=== PATIENT | female | born 1955 | race African-American/Black ===

== ENCOUNTER 2018-01-26 16:33 | Inpatient (IN) | payer OTHER ==
[~2018-01-26] VITALS: Ht 157.5 cm; Wt 73.3 kg
--- NOTE | ~2018-01-26 | EKG ---
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
--- NOTE | ~2018-01-26 | EKG ---
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 : 1955 Requested By: Calvin Rust Order Number: [id number] MD: Kirill Wagner Measurements Intervals [place] Rate: 90 P: 68 CT: 177 QRS: 64 QRSD: 70 T: 235 QT: 362 QTc: 443 Interpretive Statements Sinus rhythm Probable LVH with secondary repol abnrm Baseline wander in lead(s) II,III,aVF Compared to ECG 01/28/2018 16:52:55 No significant change was found Electronically Signed On 01-31-2018 9:02:27 CDT by Kirill Wagner [email or web address] <ELECTRONICALLY SIGNED> By: Kirill Wagner MD, [facility] 01/31/18 0902 1608 1608 Kirill Wagner MD, [facility] /EPI
--- NOTE | ~2018-01-26 | 2DMMODE ---
[facility] [place] [address] 2 D/M-MODE ECHOCARDIOGRAM Name: CLAUDETTE BENNETT Room #: 208-P [facility] IN [facility]#: [id number] Admission: 01/26/18 Attend Phys: Benja Olea MD Discharge: Date of : 51 Date of Service: 01/27/18 0919 Report #: [id number] THIS REPORT FOR: //name// APPROVED REPORT Study performed: 01/27/2018 08:23:24 EXAM: Comprehensive 2D, Doppler, and color-flow Echocardiogram Patient Location: Echo lab Status: routine BSA: 1.63 HR: 73 bpm BP: 154/94 mmHg Rhythm: NSR Other Information Study Quality: Adequate/low windows, lung disease Indications Elevated BNP, chest pain, short of breath, cough. Hx: CABG, stent, HTN, HLP, tob. 2D Dimensions RVDd: 23.59 mm IVSd: 8.34 (7-11mm) LVOT Diam: 18.63 (18-24mm) LVDd: 33.72 mm PWd: 8.54 (7-11mm) LVDs: 23.00 (25-40mm) Aortic Root: 29.25 mm Volumes Left Atrial Volume (Systole) Single Plane 4CH: 24.05 mL Single Plane 2CH: 24.00 mL LA ESV Index: 16.00 mL/m2 Aortic Valve AoV Peak Dakota.: 1.24 m/s AO Peak Gr.: 6.16 mmHg LVOT Max P.06 mmHg LVOT Max V: 1.01 m/s ELVIRA Vmax: 2.21 cm2 Mitral Valve E/A Ratio: 0.7 [facility] [address] [place] [address] 2 D/M-MODE ECHOCARDIOGRAM Name: CLAUDETTE BENNETT Room #: 208-P [facility] IN [facility]#: [id number] Admission: 01/26/18 Attend Phys: Benja Olea MD Discharge: Date of : 51 Date of Service: 01/27/18 0919 Report #: [id number] MV Decel. Time: 254.88 ms MV E Max [place].: 0.54 m/s MV A [place].: 0.73 m/s MV PHT: 73.91 ms IVRT: 117.65 ms Pulmonary Valve PV Peak Dakota.: 0.82 m/s PV Peak Gr.: 2.68 mmHg Pulmonary Vein P Vein S: 0.50 m/s P Vein A: 0.46 m/s P Vein D: 0.29 m/s P Vein A Dur.: 103.8 msec P Vein S/D Ratio: 1.72 Tricuspid Valve TR Peak [place].: 1.76 m/s RAP Estimate: 5.00 mmHg TR Peak Gr.: 12.42 mmHg PA Pressure: 17.00 mmHg Left Ventricle The left ventricle is normal size. There is normal LV segmental wall motion. Mild concentric left ventricular hypertrophy. Left ventricular systolic function is hyperdynamic. LVEF is >70%. Mild diastolic dysfunction is present (impaired relaxation pattern). Right Ventricle The right ventricle is normal size. The right ventricular systolic function is normal. Atria The left atrium size is normal. The right atrium size is normal. Aortic Valve The aortic valve is normal in structure. No aortic regurgitation. There is no aortic valvular stenosis. Mitral Valve The mitral valve is normal in structure. Trace mitral regurgitation. Tricuspid Valve The tricuspid valve is normal in structure. Trace tricuspid regurgitation. Estimated PAP of 20mmHg. [facility] [address] [place] [address] 2 D/M-MODE ECHOCARDIOGRAM Name: CLAUDETTE BENNETT Room #: 208-P [facility] IN ..#: [id number] Admission: 01/26/18 Attend Phys: Benja Olea MD Discharge: Date of : 51 Date of Service: 01/27/18 0919 Report #: [id number] Pulmonic Valve Pulmonic valve is not well visualized. Great Vessels The aortic root is normal in size. Ascending aorta is not well visualized. IVC is normal in size and collapses >50% with inspiration. Pericardium There is no pericardial effusion. <Conclusion> Left ventricular systolic function is hyperdynamic. There is normal LV segmental wall motion. LVEF is >70%. Mild diastolic dysfunction There is no aortic valvular stenosis or insufficiency. The mitral valve is normal in structure. Trace mitral regurgitation. Trace tricuspid regurgitation. Estimated pulmonary artery pressure of 20mmHg. There is no pericardial effusion. <ELECTRONICALLY SIGNED> By: Kirill Wagner MD, FACC 01/27/18918 8 8 Kirill Wagner MD, FACC /INF
--- NOTE | ~2018-01-26 | HC ---
[facility] [address] [place] [address] CONSULTATION Name: CLAUDETTE BENNETT Room #: 208-P [facility] IN ..#: [id number] Admission: 01/26/18 Attend Phys: Benja Olea MD Discharge: 01/31/18 Date of : 51 Report #: [id number] THIS REPORT FOR: //name// CC: Benja Floyd REASON FOR CONSULTATION: Chest pain. HISTORY OF PRESENT ILLNESS: The patient is a 62-year-old woman with a history of coronary artery disease with prior bypass surgery in [place], [place] about 2 years ago. She has recently moved to the [place]. 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 Last night, she experienced midsternal chest discomfort with shortness of breath. She has never had pain like this before. She has also had a nonproductive cough with occasional wheezing. She does not remember having pain prior to her bypass or prior to prior stenting procedure. She has occasional chills, no fevers. No heart failure symptoms including orthopnea, paroxysmal nocturnal dyspnea, or lower extremity edema. No history of near syncope or syncope. ALLERGIES: SHE IS ALLERGIC TO PENICILLIN. MEDICATIONS: She is not sure of her medicines. The listed medicines in the chart include atorvastatin 20 mg daily, isosorbide 30 mg daily, levothyroxine 150 mcg daily, lisinopril and metoprolol 25 mg twice daily. PAST MEDICAL HISTORY: Her past history and medical records have been reviewed and include a history of bypass surgery about 2 years ago, post-bypass stenting, complicated by groin bleeding and emergent vascular Surgery, appendectomy, COPD. SOCIAL HISTORY: She is a former smoker. FAMILY HISTORY: Notable for premature coronary artery disease. REVIEW OF SYSTEMS: All systems negative except as that noted above. PHYSICAL EXAMINATION: GENERAL: A pleasant woman in no distress. VITAL SIGNS: Blood pressure is 148/90, heart rate is 74 and regular, she is afebrile, 5 feet 2 inches tall, 137 pounds. HEENT: There are neither xanthelasma, subcutaneous xanthomata, oral mucosal or digital cyanosis or kyphoscoliosis present. CHEST: Reveals a diminished at the right base with expiratory wheezes. CARDIOVASCULAR: Regular rate and rhythm with normal S1, S2. ABDOMEN: Soft and nontender. EXTREMITIES: There is a vascular repair incision at the right groin. No cyanosis or clubbing. Radial pulses are 2+. NEUROLOGIC: She is alert with a nonfocal exam. [address] [address] CONSULTATION Name: CLAUDETTE BENNETT Room #: [address] [place] [address] [place] [facility].#: [id number] Admission: 01/26/18 Attend Phys: Benja Olea MD Discharge: 01/31/18 Date of : 51 Report #: [id number] LABORATORY DATA: Sodium 137, potassium 4.9, creatinine 1.4. Troponins 0.16, 0.12, 0.07. EKG: LVH with repolarization abnormality. ProBNP of 2418. White count 8.4, hemoglobin 14, hematocrit 43, platelet count 239. Chest x-ray demonstrates normal heart size and vascularity, basilar atelectasis. IMPRESSION: 1. Chest pain, mixed features for ischemia. This could be chronic obstructive pulmonary disease exacerbation with type 2 myocardial infarction in the setting of exacerbation of her lung disease. This could also be angina. 2. Coronary artery disease with prior bypass fairly recently. 3. Hypertension. 4. Chronic obstructive pulmonary disease. 5. Dyslipidemia. 6. Peripheral vascular disease. RECOMMENDATIONS: 1. Confirm medications. 2. Echocardiogram with Doppler. 3. Pharmacologic stress testing. 4. Consider pulmonary evaluation for what is probably significant underlying COPD. <ELECTRONICALLY SIGNED> By: Kirill Wagner MD, FACC 02/03/18 0905 0808 1634 Kirill Wagner MD, FACC /nt
--- NOTE | ~2018-01-26 | EKG ---
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 : 1955 Requested By: Benja Olea Order Number: [id number] MD: Kirill Wagner Measurements Intervals [place] Rate: 78 P: 63 [place]: 188 QRS: 64 QRSD: 77 T: 226 QT: 445 QTc: 507 Interpretive Statements Sinus rhythm LVH with secondary repolarization abnormality Prolonged QT interval Compared to ECG 01/26/2018 16:50:43 No significant change was found Electronically Signed On 01-28-2018 17:12:24 CDT by Kirill Wagner [email or web address] <ELECTRONICALLY SIGNED> By: Kirill Wagner MD, [facility] 01/28/18 1712 0023 0023 Kirill Wagner MD, [facility] /EPI
--- NOTE | ~2018-01-26 | EKG ---
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: Nadia HURLEY : 1955 Requested By: Calvin Rust Order Number: [id number] MD: Kirill Wagner Measurements Intervals [place] Rate: 68 P: 58 [place]: 184 QRS: 62 QRSD: 71 T: 180 QT: 446 QTc: 475 Interpretive Statements Sinus rhythm Probable LVH with secondary repol abnrm Compared to ECG 01/26/2018 16:50:43 No significant change was found Electronically Signed On 01-28-2018 17:18:40 CDT by Kirill Wagner [email or web address] <ELECTRONICALLY SIGNED> By: Kirill Wagner MD, [facility] 01/28/18 3938 165 165 Kirill Wagner MD, [facility] /EPI
--- NOTE | ~2018-01-26 | EKG ---
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: : 1955 Requested By: Benja Olea Order Number: [id number] MD: Kirill Wagner Measurements Intervals [employer] Rate: 73 P: 66 [place]: 185 QRS: 64 QRSD: 71 T: 224 QT: 428 QTc: 472 Interpretive Statements Sinus rhythm LVH with secondary repolarization abnormality Compared to ECG 01/26/2018 16:50:43 First degree AV block no longer present Electronically Signed On 01-28-2018 17:13:38 CDT by Kirill Wagner [email or web address] <ELECTRONICALLY SIGNED> By: Kirill Wagner MD, [facility] 01/28/18 1713 6 6 Kirill Wagner MD, [facility] /EPI
[2018-01-26 16:40] VITALS: BP 164/102
[2018-01-26 17:38] LABS: ABSOLUTE NEUTROPHILS 3.3 thou/uL (1.4-8.2); BASOPHILS 0.8 % (0.0-2.0); EOSINOPHILS 1.8 % (0.0-3.0); HEMATOCRIT 43.5 % (37.0-47.0); HEMOGLOBIN 14.5 gm/dL (12.0-15.0); LYMPHOCYTES 34.6 % (24.0-44.0); MCH 32.9 pg (26.0-34.0); MCHC 33.3 g/dL (28.0-37.0); MCV 98.8 fL (80.0-100.0); MONOCYTES 9.2 % (1.0-8.0); PLATELET COUNT 213 thou/uL (150-400); POLYS 53.6 % (36.0-66.0); RDW 13.7 % (10.5-14.5); WBC 6.1 thou/uL (4.0-11.0)
[2018-01-26] MEDS ORDERED: IMDUR 30 MG TAB30 M1 PO (18:01)
[2018-01-26] MEDS ORDERED: LIPITOR10 MG PO (18:01)
[2018-01-26] MEDS ORDERED: SYNTHROID150 MCG PO (18:01)
[2018-01-26 18:15] LABS: CALCIUM 9.4 mg/dL (8.5-10.1); CREATININE 1.4 mg/dL (0.6-1.0); POTASSIUM 4.3 mmol/L (3.5-5.1)
[2018-01-26 18:23] LABS: ALBUMIN 3.2 g/dL (3.4-5.0); MAGNESIUM 2.1 mg/dL (1.8-2.4); TOTAL BILIRUBIN 0.4 mg/dL (<0.1-1.0); TOTAL PROTEIN 7.6 g/dL (6.4-8.2); TROPONIN-I 0.16 ng/mL (<0.06)
[2018-01-26 18:46] VITALS: BP 148/84
[2018-01-26 19:03] VITALS: BP 148/84
[2018-01-26 19:32] VITALS: BP 143/109
[2018-01-26 23:27] VITALS: BP 128/84
[2018-01-27 03:53] VITALS: BP 154/94
[2018-01-27] MEDS ORDERED: LOPRESSOR25 PO (06:24)
[2018-01-27] MEDS ORDERED: LISINOPRIL10 MG PO (06:25)
[2018-01-27 07:18] LABS: HEMATOCRIT 43.4 % (37.0-47.0); MCH 32.2 pg (26.0-34.0); MCHC 32.4 g/dL (28.0-37.0); MCV 99.6 fL (80.0-100.0); RBC 4.35 mil/uL (4.20-5.00); RDW 13.6 % (10.5-14.5); WBC 8.4 thou/uL (4.0-11.0)
[2018-01-27 07:37] LABS: CALCIUM 9.2 mg/dL (8.5-10.1); CREATININE 1.4 mg/dL (0.6-1.0); POTASSIUM 4.9 mmol/L (3.5-5.1)
[2018-01-27 08:02] VITALS: BP 148/97
[2018-01-27 16:26] VITALS: BP 159/89
[2018-01-27 19:51] VITALS: BP 128/83
[2018-01-28] VITALS (24 sets, daily range): BP systolic 80–150; BP diastolic 53–89
[2018-01-28 05:54] LABS: ALBUMIN 2.8 g/dL (3.4-5.0); CALCIUM 8.9 mg/dL (8.5-10.1); CREATININE 1.4 mg/dL (0.6-1.0); POTASSIUM 4.3 mmol/L (3.5-5.1); TOTAL BILIRUBIN 0.2 mg/dL (<0.1-1.0); TOTAL PROTEIN 6.3 g/dL (6.4-8.2)
[2018-01-28 17:26] LABS: HEMATOCRIT 39.3 % (37.0-47.0); HEMOGLOBIN 12.8 gm/dL (12.0-15.0); MCH 32.7 pg (26.0-34.0); MCHC 32.7 g/dL (28.0-37.0); MCV 100.2 fL (80.0-100.0); RBC 3.92 mil/uL (4.20-5.00); RDW 13.8 % (10.5-14.5)
[2018-01-28 18:05] LABS: CALCIUM 8.9 mg/dL (8.5-10.1); CREATININE 1.7 mg/dL (0.6-1.0); POTASSIUM 4.1 mmol/L (3.5-5.1)
[2018-01-28 18:11] LABS: ALBUMIN 2.8 g/dL (3.4-5.0); TOTAL BILIRUBIN 0.2 mg/dL (<0.1-1.0); TOTAL PROTEIN 6.6 g/dL (6.4-8.2)
[2018-01-29] VITALS (11 sets, daily range): BP systolic 88–130; BP diastolic 51–74
[2018-01-30 04:04] VITALS: BP 147/93
[2018-01-30 08:15] VITALS: BP 149/86
[2018-01-30 12:20] VITALS: BP 95/61
[2018-01-30 15:20] VITALS: BP 97/64
[2018-01-30 19:36] VITALS: BP 123/69
[2018-01-31 01:21] VITALS: BP 150/93
[2018-01-31 03:20] VITALS: BP 142/92
[2018-01-31 07:55] VITALS: BP 146/90
[2018-01-31 11:35] VITALS: BP 141/89
[2018-01-31] MEDS ORDERED: LOPRESSOR25 PO (11:49)
[2018-01-31] MEDS ORDERED: PLAVIX 75 MG TA75 M1 PO (11:49)
== END 2018-01-31 14:35 | DRG 205 ==
LOC: ER 16:33 → EROBS 18:30 → 2N 18:30 → ICU 01-28 18:38 → 2N 01-29 02:58
PROVIDERS: Emergency Medicine; Family Medicine; Hospitalist
DX: M94.0 Chondrocostal junction syndrome [Tietze] (principal); J96.21 Acute and chronic respiratory failure with hypoxia; J44.1 Chronic obstructive pulmonary disease with (acute) exacerbation; N17.9 Acute kidney failure, unspecified; N18.9 Chronic kidney disease, unspecified; I25.10 Atherosclerotic heart disease of native coronary artery without angina pectoris; I12.9 Hypertensive chronic kidney disease with stage 1 through stage 4 chronic kidney disease, or unspecified chronic kidney disease; I73.9 Peripheral vascular disease, unspecified; E78.5 Hyperlipidemia, unspecified; E03.9 Hypothyroidism, unspecified; I25.119 Atherosclerotic heart disease of native coronary artery with unspecified angina pectoris; Z79.82 Long term (current) use of aspirin; Z88.0 Allergy status to penicillin; Z90.49 Acquired absence of other specified parts of digestive tract; Z87.891 Personal history of nicotine dependence; Z82.49 Family history of ischemic heart disease and other diseases of the circulatory system; Z95.1 Presence of aortocoronary bypass graft; Z79.899 Other long term (current) drug therapy; Z28.21 Immunization not carried out because of patient refusal
CPT/HCPCS: 10078; 10081

== ENCOUNTER 2018-04-12 16:36 | Emergency (ER) | payer OTHER ==
[~2018-04-12] VITALS: Ht 162.6 cm; Wt 64.0 kg
[~2018-04-12 16:36] MED LIST: IMDUR 30 MG TAB30 M1 PO; LIPITOR10 MG PO; LISINOPRIL10 MG PO; LOPRESSOR25 PO; PLAVIX 75 MG TA75 M1 PO; SYNTHROID150 MCG PO
[2018-04-12 19:36] LABS: BASOPHILS 0.9 % (0.0-2.0); EOSINOPHILS 3.6 % (0.0-3.0); HEMATOCRIT 41.6 % (37.0-47.0); HEMOGLOBIN 13.8 gm/dL (12.0-15.0); LYMPHOCYTES 31.6 % (24.0-44.0); MCH 31.7 pg (26.0-34.0); MCHC 33.2 g/dL (28.0-37.0); MCV 95.7 fL (80.0-100.0); POLYS 52.9 % (36.0-66.0); RBC 4.35 mil/uL (4.20-5.00); RDW 14.4 % (10.5-14.5)
[2018-04-12 19:44] LABS: ANION GAP 7 mmol/L (7-16); BUN 20 mg/dL (7-18); CALCIUM 9.9 mg/dL (8.5-10.1); CHLORIDE 109 mmol/L (98-107); CO2 27 mmol/L (21-32); CREATININE 1.4 mg/dL (0.6-1.0); GLUCOSE 87 mg/dL (74-106); POTASSIUM 4.5 mmol/L (3.5-5.1); SODIUM 143 mmol/L (136-145)
[2018-04-12 19:53] LABS: ALBUMIN 3.4 g/dL (3.4-5.0); SGOT 36 U/L (15-37); SGPT 33 U/L (30-65); TOTAL BILIRUBIN 0.5 mg/dL (<0.1-1.0); TOTAL PROTEIN 7.6 g/dL (6.4-8.2); TROPONIN-I <0.06 ng/mL (<0.06)
[2018-04-12] MEDS ORDERED: ZOLOFT50 MG PO (20:09)
[2018-04-12] MEDS ORDERED: OMEPRAZOLE20 M1 PO (20:09)
[2018-04-12] MEDS ORDERED: TRAZODONE HCL50 MG PO (20:09)
[2018-04-12] MEDS ORDERED: LASIX 20 MG TAB20 MG PO (20:09)
[2018-04-12 20:10] LABS: PLATELET COUNT 248 thou/uL (150-400)
[2018-04-12] MEDS ORDERED: LOPRESSOR25 PO (20:10)
[2018-04-12] MEDS ORDERED: DOXYCYCLINE 10100 MG PO (20:11)
[2018-04-12] MEDS ORDERED: PREDNISONE 20 M20 MG PO (20:44)
[2018-04-12 20:53] VITALS: BP 101/46
--- NOTE | 2018-04-13 08:07 | EKG ---
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 : 1955 Requested By: Mariana Cartagena Order Number: [id number] MD: Kirill Wagner Measurements Intervals [place] Rate: 84 P: 57 VT: 171 QRS: 60 QRSD: 70 T: 219 QT: 411 QTc: 486 Interpretive Statements Sinus rhythm LVH with secondary repolarization abnormality Borderline prolonged QT interval Compared to ECG 01/29/2018 16:08:40 No significant changes Electronically Signed On 04-13-2018 8:07:21 CHIEF BUSINESS OFFICER by Kirill Wagner [email or web address] <ELECTRONICALLY SIGNED> By: Kirill Wagner MD, [facility] 04/13/18 0807 1853 52 Kirill Wagner MD, FACC /EPI
== END 2018-04-12 20:59 | disposition home or self-care (01) ==
LOC: ER 16:36
PROVIDERS: Physician Assistant
DX: I10 Essential (primary) hypertension (principal); J44.9 Chronic obstructive pulmonary disease, unspecified; I25.10 Atherosclerotic heart disease of native coronary artery without angina pectoris; Z87.891 Personal history of nicotine dependence; Z88.0 Allergy status to penicillin; Z90.49 Acquired absence of other specified parts of digestive tract; Z95.5 Presence of coronary angioplasty implant and graft